=== PATIENT | male | born 1945 | race Caucasian/White ===

== ENCOUNTER → 2017-02-21 | Outpatient (CLI) | payer MEDICARE, OTHER ==
[2017-02-21 14:56] LABS: Blood Urea Nitrogen 14 mg/dL (9-20); Non-African American GFR(MDRD) >60 (>60 ml/min/1.73 sqM)
== END | disposition home or self-care (01) ==
LOC: LABWHC1 13:56
PROVIDERS: ATTEND Psychiatry & Neurology Neurology
DX: G40.909 Epilepsy, unspecified, not intractable, without status epilepticus (principal)
CPT/HCPCS: 36415; 82565; 84520

== ENCOUNTER → 2017-02-28 | Outpatient (CLI) | payer MEDICARE, OTHER ==
--- NOTE | 2017-02-28 10:53 | MR ---
EXAMINATION TYPE: MR brain wo/w con DATE OF EXAM: 02/28/2017 COMPARISON: NONE HISTORY: Brain tumor, twitching L eye TECHNIQUE: Multiplanar, multisequence images of the brain and brainstem is performed without and with IV contras t, utilizing 7.5 mL intravenous Gadavist . FINDINGS: Diffusion weighted images demonstrate no evidence of a recent infarct or other diffusion ab normality. There is no extra-axial fluid collection or significant white matter signal abnormality. The ventricular system and cisternal spaces are normal in size and appearance. The brain volume is age appropriate. Midline structures demonstrate normal morphology. The craniocervical junction appears within normal limits. Post contrast images demonstrate no abnormal enhancement. The dural venous sinuses appear pa tent. Findings nasal septal deviation and changes of chronic sinusitis noted. There is a prominent cisterna magna. Intraorbital structures have a normal appearance. Optic chiasm has a normal appearance. No cerebellop ontine angle mass. Areas of signal alteration within the basal ganglia may represent areas prominent Virchow-Hung space s or tiny lacunar infarctions White matter: There are approximately 30-35 areas of abnormal signal within the white matter predomin antly in the left occipital lobe and parietal lobe. Largest measures approximately 1 cm. No lesions p erpendicular to ventricular system. No callosal lesions. No enhancing lesions. IMPRESSION: 1. No evidence of acute intracranial mass or mass effect. 2. Fairly extensive white matter disease as discussed above predominantly occipital and parietal dist ribution. Findings are nonspecific and in pattern. Remote microvascular ischemia favored. Other etiol ogies including demyelinating process not entirely excluded.
== END | disposition home or self-care (01) ==
LOC: RADMRIMAIN 06:44
PROVIDERS: ATTEND Psychiatry & Neurology Neurology
DX: R90.82 White matter disease, unspecified (principal)
CPT/HCPCS: 70553; A9581

== ENCOUNTER 2021-07-26 08:45 | Day surgery (SDC) | payer MEDICARE, OTHER ==
[2021-07-24 13:20] VITALS: BMI 24.7
[~2021-07-26 08:45] MED LIST: LACTATED RINGERS 1,000 ML IV SCH
[2021-07-26 08:58] VITALS: TEMP 97.8
[2021-07-26 09:14] LABS: Glucose,Whole Blood 75 mg/dL (75-99)
[2021-07-26] MEDS ORDERED: PROPOFOL 10 MG/ML 20 ML VIAL IV ONE (09:19)
[2021-07-26] MEDS ORDERED: LIDOCAINE 1% INJ 10MG/ML (20 ML MDV) ONE (09:19)
--- NOTE | 2021-07-26 09:38 | P.PCN ---
Date of Procedure: 07/26/21 Procedure(s) Performed: BRIEF HISTORY: Patient is a 76-year-old pleasant male scheduled for an elective colonoscopy as a part of the for colorectal neoplasia. Last colonoscopy was 15 years ago. PROCEDURE PERFORMED: Colonoscopy snare polypectomy. PREOPERATIVE DIAGNOSIS: Screening for colon cancer. IV sedation per Anesthesia. PROCEDURE: After informed consent was obtained, the patient, was brought into the endoscopy unit. IV sedation was administered by Anesthesia under continuous monitoring. Digital rectal examination was normal. Initially the Olympus CF-160 flexible video colonoscope was then inserted in the rectum, gradually advanced into the cecum without any difficulty. Careful examination was performed as the scope was gradually being withdrawn. Ileocecal valve and the appendiceal orifice were visualized and appeared normal. Prep was excellent. Mucosa of the cecum, ascending colon, transverse colon, descending colon, sigmoid colon, and rectum appeared normal. The proximal rectum there was a 1 cm polyp removed by snare polypectomy Retroflexion was performed in the rectum and no lesions were seen. The patient tolerated the procedure well. IMPRESSION: 1 cm proximal rectal polyp status post polypectomy Rest of the colon appeared normal RECOMMENDATIONS: Findings of this examination were discussed with the patient as well as his family. He was advised to follow with the biopsy results. If the biopsy results adenoma he can have a repeat colonoscopy in 3 years.
[2021-07-26 10:00] VITALS: PULSE 80; RESP 20
[2021-07-26 10:11] VITALS: BP 123/76
== END 2021-07-26 10:13 | disposition home or self-care (01) ==
LOC: ORWHC2ENDO 08:45
PROVIDERS: ATTEND Internal Medicine Gastroenterology
DX: Z12.11 Encounter for screening for malignant neoplasm of colon (principal); D12.8 Benign neoplasm of rectum; E78.5 Hyperlipidemia, unspecified; N40.0 Benign prostatic hyperplasia without lower urinary tract symptoms; K21.9 Gastro-esophageal reflux disease without esophagitis; Z79.899 Other long term (current) drug therapy
CPT/HCPCS: 88305; 45385; J2001; J2704

== ENCOUNTER 2022-01-26 06:14 | Day surgery (SDC) | payer MEDICARE, OTHER ==
[2022-01-24 10:47] VITALS: BMI 24.3
[2022-01-26 06:38] VITALS: TEMP 97.8
[2022-01-26 06:51] LABS: Glucose,Whole Blood 81 mg/dL (70-110)
[2022-01-26] MEDS ORDERED: PROPOFOL 10 MG/ML 20 ML VIAL IV ONE (07:13)
--- NOTE | 2022-01-26 07:35 | P.PCN ---
Date of Procedure: 01/26/22 Procedure(s) Performed: BRIEF HISTORY: Patient is a 76-year-old pleasant male scheduled for an elective colonoscopy as a part of follow-up of rectal polyp with high-grade dysplasia noted on a routine screening colonoscopy in July of this year. PROCEDURE PERFORMED: Colonoscopy with biopsy. PREOPERATIVE DIAGNOSIS: Follow-up rectal polyp with high-grade dysplasia. IV sedation per Anesthesia. PROCEDURE: After informed consent was obtained, the patient, was brought into the endoscopy unit. IV sedation was administered by Anesthesia under continuous monitoring. Digital rectal examination was normal. Initially the Olympus CF-160 flexible video colonoscope was then inserted in the rectum, gradually advanced into the cecum without any difficulty. Careful examination was performed as the scope was gradually being withdrawn. Ileocecal valve and the appendiceal orifice were visualized and appeared normal. Prep was excellent. Mucosa of the cecum, ascending colon, transverse colon, descending colon, sigmoid colon, and rectum appeared normal. In the distal rectum there was a 2 mm polyp that was removed by cold biopsy. Retroflexion was performed in the rectum and no lesions were seen. The patient tolerated the procedure well. IMPRESSION: 2 mm residual rectal polyp status post cold biopsy Rest of the colon appeared normal RECOMMENDATIONS: Findings of this examination were discussed with the patient well as his family. He was advised to follow with the biopsy results. Recommend repeat colonoscopy in 3 years..
[2022-01-26 07:39] VITALS: RESP 16
[2022-01-26 07:54] VITALS: BP 144/83; PULSE 69
== END 2022-01-26 08:03 | disposition home or self-care (01) ==
LOC: ORWHC2ENDO 06:14
PROVIDERS: ATTEND Internal Medicine Gastroenterology
DX: K62.1 Rectal polyp (principal); K62.89 Other specified diseases of anus and rectum; E78.5 Hyperlipidemia, unspecified; N40.0 Benign prostatic hyperplasia without lower urinary tract symptoms; K21.9 Gastro-esophageal reflux disease without esophagitis; Z79.899 Other long term (current) drug therapy; Z87.891 Personal history of nicotine dependence; Z80.1 Family history of malignant neoplasm of trachea, bronchus and lung; Z80.8 Family history of malignant neoplasm of other organs or systems
CPT/HCPCS: 88305; 45380; J2704

== ENCOUNTER 2022-08-09 17:40 | Emergency (ER) | payer MEDICARE, OTHER ==
[2022-08-09 18:18] VITALS: TEMP 98.3
[2022-08-09] MEDS ORDERED: SODIUM CHLORIDE 0.9% 500 ML 500 ML IV STA (18:40)
[2022-08-09 19:34] LABS: Basophils # (A) 0.1 k/uL (0-0.2); Basophils % (A) 1 %; Eosinophils # (A) 0.1 k/uL (0-0.7); Eosinophils % (A) 2 %; HCT 45.3 % (39.0-53.0); HGB 15.7 gm/dL (13.0-17.5); Lymphocytes # (A) 1.1 k/uL (1.0-4.8); Lymphocytes % (A) 20 %; MCH 33.3 pg (25.0-35.0); MCHC 34.6 g/dL (31.0-37.0); MCV 96.3 fL (80.0-100.0); Mean Platelet Volume 9.7; Monocytes # (A) 0.3 k/uL (0-1.0); Monocytes % (A) 6 %; Neutrophils # (A) 3.8 k/uL (1.3-7.7); Neutrophils % (A) 68 %; Platelet Count 139 k/uL (150-450); RDW 13.5 % (11.5-15.5); WBC 5.6 k/uL (3.8-10.6)
[2022-08-09 19:49] LABS: ALT 17 U/L (4-49); AST 24 U/L (17-59); African American GFR (CKD) >90 (>60 ml/min/1.73 sqM); Albumin 4.3 g/dL (3.5-5.0); Alkaline Phosphatase 59 U/L (38-126); Amylase 54 U/L (30-110); Anion Gap 7 mmol/L; Blood Urea Nitrogen 16 mg/dL (9-20); Calcium 8.7 mg/dL (8.4-10.2); Carbon Dioxide 27 mmol/L (22-30); Chloride 105 mmol/L (98-107); Glucose 85 mg/dL (74-99); Lipase 29 U/L (23-300); Non-African American GFR(CKD) 89 (>60 ml/min/1.73 sqM); Potassium 4.2 mmol/L (3.5-5.1); Sodium 139 mmol/L (137-145); Total Bilirubin 1.2 mg/dL (0.2-1.3); Total Protein 7.1 g/dL (6.3-8.2)
[2022-08-09 20:45] LABS: Amorphous Sediment,Urine Rare /hpf; Appearance,Urine Clear (Clear); Bilirubin,Urine Negative (Negative); Blood,Urine Trace (Negative); Color,Urine Yellow; Glucose,Urine (UA) Negative (Negative); Ketones,Urine 1+ (Negative); Leukocyte Esterase,Urine Negative (Negative); Mucus,Urine Rare /hpf; Nitrite,Urine Negative (Negative); PH, Urine 5.5 (5.0-8.0); Protein,Urine Trace (Negative); RBC,Urine 7 /hpf (0-5); Specific Gravity,Urine 1.021 (1.001-1.035); Squamous Epithelial Cell,Urine 1 /hpf (0-4); Urobilinogen,Urine <2.0 mg/dL (<2.0); WBC,Urine 9 /hpf (0-5)
--- NOTE | 2022-08-09 21:25 | CT ---
EXAMINATION TYPE: CT abdomen pelvis w con CT DLP: 909.2 mGycm, Automated exposure control for dose reduction was used. DATE OF EXAM: 08/09/2022 8:52 PM COMPARISON: None CLINICAL INDICATION:Male, 77 years old with history of LLQ abdominal pain; LLQ abdominal pain TECHNIQUE: Axial CT of the abdomen and pelvis. Sagittal and coronal reformats were created on a [employer] workstation. Contrast used:100 cc mL of Isovue 300 with IV Contrast, Oral contrast used: without Oral Contrast FINDINGS: LOWER CHEST: Peripheral interstitial lung prominence with air cysts. No suspicious nodule. No focal c onsolidation, pneumothorax or pleural effusion. ABDOMEN LIVER: Unremarkable GALLBLADDER AND BILE DUCTS: Unremarkable. PANCREAS: Unremarkable. SPLEEN: Unremarkable. ADRENAL GLANDS: Unremarkable. KIDNEYS AND URETERS: No evidence of hydronephrosis or renal calculus. The ureters are unremarkable. PELVIS BLADDER: Left posterior lateral bladder diverticula. There is hyperemia diverticula bladder wall. REPRODUCTIVE: Prostate is enlarged in size measuring 4.8 cm in transverse dimension. ABDOMEN & PELVIS STOMACH AND BOWEL: No evidence of bowel obstruction. Moderate hiatal hernia is present. The appendix is normal. Scattered colonic diverticula.r PERITONEUM/RETROPERITONEUM: No evidence of pneumoperitoneum or free fluid. VASCULATURE: Mild atherosclerotic calcifications are present throughout the abdominal aorta and its b ranches. No evidence of aortic aneurysm. MUSCULOSKELETAL: L1 vertebral body age-indeterminate compression fracture. There is 5 mm retropulsion and at least 70% height loss centrally. LYMPH NODES: No gross evidence for lymphadenopathy. SOFT TISSUE/ABDOMINAL WALL: Bilateral fat-containing inguinal hernias IMPRESSION: 1. No obvious acute left lower quadrant process. There is colonic diverticulosis without significant fat stranding changes. There is left lower quadrant fat-containing inguinal hernia and left posterio r lateral bladder diverticula with some hyperemic urothelium. No obstructive uropathy or renal calcul us. 2. Prostatomegaly. Correlate serum PSA. 3. Bilateral fat-containing inguinal hernias. 4. Moderate hiatal hernia 5. L1 vertebral body age-indeterminate compression fracture. There is 5 mm retropulsion and at least 70% height loss centrally.
[2022-08-09 22:03] VITALS: BP 146/92; PULSE 68; RESP 18
--- NOTE | 2022-08-09 22:05 | ED ---
General Adult HPI - General Chief complaint: Abdominal Pain Stated complaint: Sent by urgent care/[facility] Abd Pain Time Seen by Provider: 08/09/22 18:31 Source: patient Mode of arrival: ambulatory Limitations: no limitations - History of Present Illness Initial comments: Patient is a 77-year-old male presenting from urgent care for left lower quadrant pain. Patient states that yesterday after he was walking for a long period of time he started to experience pain in the left lower quadrant that was cramping in nature. Patient states that he felt cold and was pushing on his abdomen and that seems to alleviate the pain. Patient has not had a recurrence of the pain since then. He is having no fever or chills. No diarrhea, hematochezia, melena, dysuria, hematuria. No flank pain. No chest pain or difficulty breathing. No nausea or vomiting. - Related Data Home Medications Medication Instructions Recorded Confirmed Omeprazole 20 mg PO DAILY 05/25/21 08/09/22 Pravastatin Sodium [Pravachol] 10 mg PO HS 05/25/21 08/09/22 Tamsulosin HCl [Flomax] 0.4 mg PO HS 05/25/21 08/09/22 Magnesium Oxide [Magnesium] 500 mg PO DAILY PRN 08/09/22 08/09/22 Previous Rx's Medication Instructions Recorded Sulfamethox-Tmp 800-160Mg [Bactrim 1 tab PO Q12HR 7 Days #14 tab 08/09/22 DS 800-160 mg] Allergies Allergy/AdvReac Type Severity Reaction Status Date / Time No Known Allergies Allergy Verified 08/09/22 19:38 Review of Systems ROS Statement: Those systems with pertinent positive or pertinent negative responses have been documented in the HPI. ROS Other: All systems not noted in ROS Statement are negative. Past Medical History Past Medical History: GERD/Reflux, Osteoarthritis (OA), Prostate Disorder Additional Past Medical History / Comment(s): HYPOGLYCEMIA., BPH, History of Any Multi-Drug Resistant Organisms: None Reported Additional Past Surgical History / Comment(s): GUM & ORAL SURGERY, CIRCUMSICION, COLONOSCOPY. Past Anesthesia/Blood Transfusion Reactions: No Reported Reaction Past Psychological History: No Psychological Hx Reported Smoking Status: Former smoker Past Alcohol Use History: None Reported Past Drug Use History: None Reported - Past Family History Mother Family Medical History: No Reported History Father Family Medical History: Cancer General Exam Limitations: no limitations General appearance: alert, in no apparent distress Head exam: Present: atraumatic, normocephalic, normal inspection Eye exam: Present: normal appearance Neck exam: Present: normal inspection, full ROM Respiratory exam: Present: normal lung sounds bilaterally. Absent: respiratory distress, wheezes, rales, rhonchi, stridor Cardiovascular Exam: Present: regular rate, normal rhythm, normal heart sounds. Absent: systolic murmur, diastolic murmur, rubs, gallop, clicks GI/Abdominal exam: Present: soft. Absent: distended, tenderness, guarding, rebound, rigid Neurological exam: Present: alert, oriented X3, CN II-XII intact Psychiatric exam: Present: normal affect, normal mood Skin exam: Present: warm, dry, intact, normal color. Absent: rash Course Vital Signs 08/09/22 08/09/22 18:14 22:03 Temperature 98.3 F Pulse Rate 72 68 Respiratory 20 18 Rate Blood Pressure 128/79 146/92 O2 Sat by Pulse 95 97 Oximetry Medical Decision Making - Medical Decision Making Was pt. sent in by a medical professional or institution (, PA, TRANSPORTATION SECURITY OFFICER, urgent care, hospital, or half-way...) When possible be specific @ -Urgent care Did you speak to anyone other than the patient for history (EMS, parent, family, police, friend...)? What history was obtained from this source @ -No Did you review nursing and triage notes (agree or disagree)? Why? @ -I reviewed the nursing and triage note and disagree, patient states that pain started yesterday and has not recurred since then Were old charts reviewed (outside hosp., previous admission, EMS record, old EKG, old radiological studies, urgent care reports/EKG's, half-way records)? Report findings @ -No old charts were reviewed Differential Diagnosis (chest pain, altered mental status, abdominal pain women, abdominal pain men, vaginal bleeding, weakness, fever, dyspnea, syncope, headache, dizziness, GI bleed, back pain, seizure, CVA, palpatations, mental health, musculoskeletal)? @ -[facility] Differential Abdominal Pain Men: Appendicitis, cholecystitis, diverticulosis, ischemic bowel, pancreatitis, hepatitis, UTI, gastroenteritis, AAA, incarcerated hernia, bowel obstruction, c onstipation, inflammatory bowel, hepatitis, peptic ulcer disease, splenic infarction, perforated viscus, testicular torsion... This is not meant to be an all-inclusive list EKG interpreted by me (3pts min.). @ -As above X-rays interpreted by me (1pt min.). @ -None done CT interpreted by me (1pt min.). @ -CT shows no obvious acute left lower quadrant process. There is diverticulosis without significant fat stranding changes. There is a left lower quadrant fat containing inguinal hernia and left posterior lateral bladder diverticula with some hyperemic urothelium. No obstructive uropathy or renal calculus. Prostatomegaly. Bilateral fat containing inguinal hernias. A moderate hiatal hernia. L1 vertebral body age-indeterminate compression fracture. U/S interpreted by me (1pt. min.). @ -None done What testing was considered but not performed or refused? (CT, X-rays, U/S, labs)? Why? @ -None What meds were considered but not given or refused? Why? @ -None Did you discuss the management of the patient with other professionals (professionals i.e. , PA, TRANSPORTATION SECURITY OFFICER, lab, RT, psych nurse, dialysis social worker, standpipe tender, teacher, marine safety officer, manager rn case)? Give summary @ -No Was smoking cessation discussed for >3mins.? @ -No Was critical care preformed (if so, how long)? @ -No Were there social determinants of health that impacted care today? How? (Homelessness, low income, unemployed, alcoholism, drug addiction, transportation, low edu. Level, literacy, decrease access to med. care, residential, rehab)? @ -No Was there de-escalation of care discussed even if they declined (Discuss DNR or withdrawal of care, Hospice)? DNR status @ -No What co-morbidities impacted this encounter? (DM, HTN, Smoking, COPD, CAD, Cancer, CVA, ARF, Chemo, Hep., AIDS, mental health diagnosis, sleep apnea, morbid obesity)? @ -None Was patient admitted / discharged? Hospital course, mention meds given and route, prescriptions, significant lab abnormalities, going to OR and other pertinent info. @ -Patient is a 77-year-old male presenting with chief complaint of left lower quadrant pain that occurred yesterday and has not recurred since. He was sent here by urgent care. On physical examination abdomen is soft, nontender, nondistended. Lab work shows no leukocytosis or anemia. CMP is unremarkable. Urine shows evidence of possible UTI, we'll treat with Bactrim. CT shows no acute process of the left lower quadrant. Given patient's description may have been hernia. Patient will be provided with a general surgery referral. Follow- up with PCP. Report back to ER with any new or worsening symptoms. Discussed return parameters and answered all questions. Patient conveyed verbal understa nding and agreed to the plan. I discussed this case in detail with my attending Dr. Fan Undiagnosed new problem with uncertain prognosis? @ -No Drug Therapy requiring intensive monitoring for toxicity (Heparin, Nitro, Insulin, Cardizem)? @ -No Were any procedures done? @ -No Diagnosis/symptom? @ -UTI Acute, or Chronic, or Acute on Chronic? @ -Acute Uncomplicated (without systemic symptoms) or Complicated (systemic symptoms)? @ -Uncomplicated Side effects of treatment? @ -No Exacerbation, Progression, or Severe Exacerbation? @ -No Poses a threat to life or bodily function? How? (Chest pain, USA, AR, pneumonia, PE, COPD, DKA, ARF, appy, cholecystitis, CVA, Diverticulitis, Homicidal, Suicidal, threat to staff... and all critical care pts) @ -No - Lab Data Result diagrams: 08/09/22 19:16 08/09/22 19:16 Lab Results 08/09/22 08/09/22 08/09/22 Range/Units 19:16 19:16 19:16 WBC 5.6 (3.8-10.6) k/uL RBC 4.70 (4.30-5.90) m/uL Hgb 15.7 (13.0-17.5) gm/dL Hct 45.3 (39.0-53.0) % MCV 96.3 (80.0-100.0) fL MCH 33.3 (25.0-35.0) pg MCHC 34.6 (31.0-37.0) g/dL RDW 13.5 (11.5-15.5) % Plt Count 139 L (150-450) k/uL MPV 9.7 Neutrophils % 68 % Lymphocytes % 20 % Monocytes % 6 % Eosinophils % 2 % Basophils % 1 % Neutrophils # 3.8 (1.3-7.7) k/uL Lymphocytes # 1.1 (1.0-4.8) k/uL Monocytes # 0.3 (0-1.0) k/uL Eosinophils # 0.1 (0-0.7) k/uL Basophils # 0.1 (0-0.2) k/uL Sodium 139 (137-145) mmol/L Potassium 4.2 (3.5-5.1) mmol/L Chloride 105 (98-107) mmol/L Carbon Dioxide 27 (22-30) mmol/L Anion Gap 7 mmol/L BUN 16 (9-20) mg/dL Creatinine 0.78 (0.66-1.25) mg/dL Est GFR (CKD-EPI)AfAm >90 (>60 ml/min/1.73 sqM) Est GFR (CKD-EPI)NonAf 89 (>60 ml/min/1.73 sqM) Glucose 85 (74-99) mg/dL Plasma Lactic Acid Joel 0.9 (0.7-2.0) mmol/L Calcium 8.7 (8.4-10.2) mg/dL Total Bilirubin 1.2 (0.2-1.3) mg/dL AST 24 (17-59) U/L ALT 17 (4-49) U/L Alkaline Phosphatase 59 (38-126) U/L Total Protein 7.1 (6.3-8.2) g/dL Albumin 4.3 (3.5-5.0) g/dL Amylase 54 (30-110) U/L Lipase 29 (23-300) U/L Urine Color Urine Appearance (Clear) Urine pH (5.0-8.0) Ur Specific [place] (1.001-1.035) Urine Protein (Negative) Urine Glucose (UA) (Negative) Urine Ketones (Negative) Urine Blood (Negative) Urine Nitrite (Negative) Urine Bilirubin (Negative) Urine Urobilinogen (<2.0) mg/dL Ur Leukocyte Esterase (Negative) Urine RBC (0-5) /hpf Urine WBC (0-5) /hpf Ur Squamous Epith Cells (0-4) /hpf Amorphous Sediment (None) /hpf Urine Mucus (None) /hpf 08/09/22 Range/Units 20:25 WBC (3.8-10.6) k/uL RBC (4.30-5.90) m/uL Hgb (13.0-17.5) gm/dL Hct (39.0-53.0) % MCV (80.0-100.0) fL MCH (25.0-35.0) pg MCHC (31.0-37.0) g/dL RDW (11.5-15.5) % Plt Count (150-450) k/uL MPV Neutrophils % % Lymphocytes % % Monocytes % % Eosinophils % % Basophils % % Neutrophils # (1.3-7.7) k/uL Lymphocytes # (1.0-4.8) k/uL Monocytes # (0-1.0) k/uL Eosinophils # (0-0.7) k/uL Basophils # (0-0.2) k/uL Sodium (137-145) mmol/L Potassium (3.5-5.1) mmol/L Chloride (98-107) mmol/L Carbon Dioxide (22-30) mmol/L Anion Gap mmol/L BUN (9-20) mg/dL Creatinine (0.66-1.25) mg/dL Est GFR (CKD-EPI)AfAm (>60 ml/min/1.73 sqM) Est GFR (CKD-EPI)NonAf (>60 ml/min/1.73 sqM) Glucose (74-99) mg/dL Plasma Lactic Acid Joel (0.7-2.0) mmol/L Calcium (8.4-10.2) mg/dL Total Bilirubin (0.2-1.3) mg/dL AST (17-59) U/L ALT (4-49) U/L Alkaline Phosphatase (38-126) U/L Total Protein (6.3-8.2) g/dL Albumin (3.5-5.0) g/dL Amylase (30-110) U/L Lipase (23-300) U/L Urine Color Yellow Urine Appearance Clear (Clear) Urine pH 5.5 (5.0-8.0) Ur Specific [place] 1.021 (1.001-1.035) Urine Protein Trace H (Negative) Urine Glucose (UA) Negative (Negative) Urine Ketones 1+ H (Negative) Urine Blood Trace H (Negative) Urine Nitrite Negative (Negative) Urine Bilirubin Negative (Negative) Urine Urobilinogen <2.0 (<2.0) mg/dL Ur Leukocyte Esterase Negative (Negative) Urine RBC 7 H (0-5) /hpf Urine WBC 9 H (0-5) /hpf Ur Squamous Epith Cells 1 (0-4) /hpf Amorphous Sediment Rare H (None) /hpf Urine Mucus Rare H (None) /hpf Disposition Clinical Impression: UTI (urinary tract infection) Disposition: HOME SELF-CARE Condition: Good Instructions (If sedation given, give patient instructions): Urinary Tract Infection in Men (ED), Inguinal Hernia (ED) Additional Instructions: Follow-up with PCP and surgeon. Report back to ER with any new or worsening symptoms. Take medication as prescribed. Prescriptions: Sulfamethox-Tmp 800-160Mg [Bactrim DS 800-160 mg] 1 tab PO Q12HR 7 Days #14 tab Is patient prescribed a controlled substance at d/c from ED?: No Referrals: [facility],Clinic [Primary Care Provider] - 1-2 days Ashish Gallegos MD [STAFF PHYSICIAN] - 1-2 days Time of Disposition: 22:04
== END 2022-08-09 22:28 | disposition home or self-care (01) ==
LOC: EC 17:40
DX: N39.0 Urinary tract infection, site not specified (principal); K21.9 Gastro-esophageal reflux disease without esophagitis; M19.90 Unspecified osteoarthritis, unspecified site; Z87.891 Personal history of nicotine dependence; Z79.899 Other long term (current) drug therapy
CPT/HCPCS: 36415; 80053; 82150; 83605; 83690; 85025; 81001; 74177; 99284; 96360; Q9967

== ENCOUNTER → 2023-04-22 | Outpatient (CLI) | payer OTHER ==
[2023-04-22 20:53] LABS: HCT 48.8 % (39.6-50.0); HGB 16.2 g/dL (13.0-17.0); MCH 31.9 pg (27.0-32.0); MCHC 33.2 g/dL (32.0-37.0); MCV 96.1 FL (80.0-97.0); Mean Platelet Volume 11.6 FL (9.5-12.2); NRBC Per 100 WBC 0 X 10*3/uL (0.00-0.01); Platelet Count 171 X 10*3/uL (140-440); RBC 5.08 X 10*6/uL (4.40-5.60); RDW 13.1 % (11.5-14.5)
[2023-04-22 21:10] LABS: Blood Urea Nitrogen 21.8 mg/dL (9.0-27.0); Carbon Dioxide 27.2 mmol/L (21.6-31.8); Chloride 101 mmol/L (96-109); Potassium 5.2 mmol/L (3.5-5.5); Sodium 137 mmol/L (135-145)
== END | disposition home or self-care (01) ==
LOC: LABWHC1 13:21
PROVIDERS: ATTEND Internal Medicine
DX: Z01.812 Encounter for preprocedural laboratory examination (principal); I45.10 Unspecified right bundle-branch block; R06.09 Other forms of dyspnea
CPT/HCPCS: 36415; 80051; 82565; 84520; 85027

== ENCOUNTER 2023-04-29 10:02 | Day surgery (SDC) | payer OTHER ==
[~2023-04-29 10:02] MED LIST changes: +ALPRAZolam 0.25 MG TAB PO PRN; +ALPRAZolam 0.5 MG TAB PO PRN; +ASPIRIN 325 MG TAB PO STA; -LACTATED RINGERS 1,000 ML IV SCH; +NITROGLYCERIN SL TABS 0.4 MG TAB SUBLINGUAL PRN; +SODIUM CHLORIDE 0.9% 1,000 ML in EMPTY BAG 1 BAG IV SCH
[2023-04-29] MEDS ORDERED: SODIUM CHLORIDE 0.9% 1,000 ML IV ONE (10:09)
[2023-04-29] MEDS ORDERED: VERAPAMIL 2.5 MG/ML 2 ML AMP ONE (10:39)
[2023-04-29 10:50] VITALS: RESP 16; TEMP 97.6
[2023-04-29] MEDS ORDERED: HEPARIN SODIUM 1,000 UN/ML (10ML VL) ONE (11:11)
[2023-04-29] MEDS ORDERED: fentaNYL (PF) 50 MCG/ML 2 ML AMP ONE (11:11)
[2023-04-29] MEDS ORDERED: fentaNYL (PF) 50 MCG/1 ML VIAL IVP ONE (11:18)
[2023-04-29] MEDS ORDERED: MIDAZOLAM 2 MG/2 ML VIAL IVP ONE (11:18)
[2023-04-29] MEDS ORDERED: LIDOCAINE 1% INJ 10MG/ML (20 ML MDV) SQ ONE (11:19)
[2023-04-29] MEDS ORDERED: VERAPAMIL SYRINGE (5 MG/10 ML) INTRAARTER ONE (11:22)
[2023-04-29] MEDS ORDERED: HEPARIN SODIUM 1,000 UN/ML (10ML VL) IV ONE (11:23)
[2023-04-29] MEDS ORDERED: CLOPIDOGREL 75 MG TAB PO ONE (11:35)
[2023-04-29] MEDS: NITROGLYCERIN 1000MCG/10ML SYRINGE INTRACORON ONE ×2 (11:37→11:51)
[2023-04-29] MEDS ORDERED: CLOPIDOGREL 75 MG TAB ONE (11:40)
[2023-04-29] MEDS ORDERED: IOPAMIDOL-370 100ML BTL INJ ONE (11:51)
[2023-04-29] MEDS ORDERED: IOPAMIDOL-370 100ML BTL INTRATHECA ONE (11:54)
--- NOTE | 2023-04-29 12:59 | P.PRCINT ---
Percutaneous Coronary Int. - Percutaneous Coronary Intervention Percutaneous Coronary Intervention: PROCEDURES PERFORMED: Left heart catheterization, bilateral coronary angiography, ultrasound guided arterial access, iFR circumflex and LAD, PCI mid LAD with a 2.25 x 23 mm Xience GURDEEP, post dilated with a 2.5NC balloon INDICATION: Abnormal stress test CONSENT:I have discussed the risks, benefits and alternative therapies for the above-mentioned procedure and for both sedation/analgesia as well as necessary blood product administration, if indicated, as they pertain to this patient. The patient has indicated understanding and acceptance of the risks and procedures discussed. PROCEDURE: After the risks, benefits and alternatives of the above mentioned procedure explained in detail with the patient, informed consent was obtained. Patient was taken to the catheterization lab and prepped and draped in usual fashion. Ultrasound guidance was used to assess for arterial access. 1% lidocaine was used to anesthetize the right radial artery. A 6-Malagasy sheath was placed in the right radial artery using modified Seldinger technique and ultrasound guidance. Left coronary angiography was performed with a 5-Malagasy JL 3.5 catheter and right coronary angiography was performed with a 5-Malagasy AR2 catheter in various views. A 5-Malagasy AR2 catheter was inserted into the left ventricle and pressure measurements were obtained. The decision was made to perform iFR of the LAD and circumflex. Heparin was given. A 6-Malagasy CLS 3.5 guide catheter was used to engage the left main. A 0.014 pressure wire was advanced in the left main and normalized. It was then advanced 1 cm distal to the circumflex lesion and was noted to be normal at 1.01 with no gradient with pullback. The pressure wire was advanced into the LAD and normalized again. The wire was then advanced 1 cm distal to the mid LAD lesion and noted to be an abnormal 0.89 with the majority of gradient at the mid LAD lesion. Therefore the decision was made to perform PCI of LAD. Predilation was performed with a 2.0 x 12 mm balloon. Next a 2.25 x 23 mm Xience GURDEEP was placed in the mid LAD. The proximal portion of the stent was postdilated with a 2.5 noncompliant balloon. There was more diffuse mild disease at the distal edge of the stent however diffuse disease throughout the entire artery and therefore this was felt best treated medically. Pre-intervention there was 75% stenosis and LARRY-3 flow and postintervention there was less than 10% stenosis with LARRY 3 flow. The right radial sheath was removed and a TR band was placed with hemostasis achieved. The patient tolerated the procedure well. Patient was transported back to the post catheterization holding area in stable condition. Conscious Sedation: Patient was monitored under the direct supervision of myself for conscious sedation using Versed and fentanyl for a total duration of 37 minutes HEMODYNAMICS: Aorta: 105/72 LV: 101/5, LVEDP 12 SELECTIVE CORONARY ARTERIOGRAPHY: LEFT MAIN: The left main is a large caliber vessel which bifurcates into the LAD and circumflex. There is no significant stenosis. LEFT ANTERIOR DESCENDING CORONARY ARTERY: LAD is a large caliber vessel which wraps around to the apex. There is diffuse mild to moderate disease including a mid LAD 75% followed by a 70% stenosis. Diagonal 1 is small caliber and has a proximal 70% stenosis. LEFT CIRCUMFLEX CORONARY ARTERY: Left circumflex is a moderate caliber vessel an ostial 50-60% circumflex stenosis and otherwise mild luminal irregularities. RIGHT CORONARY ARTERY: The right coronary artery is a large caliber vessel which gives off a PDA and PLV branch and is the dominant vessel. There are mild luminal irregularities of the RCA. FINAL IMPRESSION: 1. CAD as described above including mid LAD tandem 75%, 70% stenoses, diagonal one small caliber 70% stenosis, ostial circumflex 50-60% stenosis 2. Normal left sided filling pressures 3. iFR LAD abnormal at 0.8, iFR normal of the circumflex at 1.01 4. S/p PCI mid LAD with a 2.25 x 23 mm Xience GURDEEP, post dilated with a 2.5NC balloon PLAN: 1. Aggressive risk factor modification per most recent ACC/AHA guidelines. 2. Continue dual antiplatelets with aspirin and Plavix for 6 months.
[2023-04-29] MEDS ORDERED: ZOLPIDEM 5 MG TAB PO PRN ×2 (13:00→14:36)
[2023-04-29] MEDS ORDERED: MAG HYDROX/AL HYDROX/SIMETH 30 ML CUP PO PRN ×2 (13:00→14:36)
[2023-04-29] MEDS ORDERED: RX INFO: IV CONTRAST WAS GIVEN 1 EACH MISC MISCELLANE PRN (13:00)
[2023-04-29] MEDS ORDERED: SODIUM CHLORIDE 0.9% 1,000 ML in EMPTY BAG 1 BAG IV SCH ×2 (13:00→14:36)
[2023-04-29] MEDS ORDERED: ATROPINE SULFATE 0.1 MG/ML 10ML SYRINGE IV PRN (14:36)
[2023-04-29] MEDS ORDERED: NITROGLYCERIN SL TABS 0.4 MG TAB SUBLINGUAL PRN (14:36)
[2023-04-29 16:23] VITALS: BP 145/78; PULSE 76
[2023-04-29] MEDS ORDERED: ATORVASTATIN 40 MG TAB PO SCH (21:00)
[2023-04-30] MEDS ORDERED: CLOPIDOGREL 75 MG TAB PO SCH ×2 (09:00)
== END 2023-04-29 16:05 | disposition home or self-care (01) ==
LOC: CATHCVL 10:02
PROVIDERS: ATTEND Internal Medicine
DX: I25.10 Atherosclerotic heart disease of native coronary artery without angina pectoris (principal); E78.5 Hyperlipidemia, unspecified; Z82.49 Family history of ischemic heart disease and other diseases of the circulatory system; Z87.891 Personal history of nicotine dependence; Z79.899 Other long term (current) drug therapy
CPT/HCPCS: 93458; 93799; 76937; C1769 ×3; C9600; C1887; C1894; C1725 ×2; C1874; J2250; J2001; J1644; Q9967; J3010; J2305

== ENCOUNTER → 2023-07-02 | Outpatient (CLI) | payer OTHER, MEDICARE ==
[2023-07-03 03:01] LABS: ALT 22 U/L (10-49); AST 22 U/L (14-35); Chol/HDL Ratio 2.12 Ratio; LDL Cholesterol,Calculated 51.2 mg/dL (0.0-131.0)
== END | disposition home or self-care (01) ==
LOC: LABWHC1 15:35
PROVIDERS: ATTEND Internal Medicine
DX: E78.2 Mixed hyperlipidemia (principal)
CPT/HCPCS: 36415; 80061; 84450; 84460

== ENCOUNTER 2024-03-26 11:56 | Day surgery (SDC) | payer MEDICARE, OTHER ==
[2024-03-25 08:59] VITALS: BMI 24.7
[~2024-03-26 11:56] MED LIST changes: -ALPRAZolam 0.25 MG TAB PO PRN; -ALPRAZolam 0.5 MG TAB PO PRN; -ASPIRIN 325 MG TAB PO STA; +HYDROmorphone 0.5 MG/0.5 ML SYRINGE IVP PRN; -NITROGLYCERIN SL TABS 0.4 MG TAB SUBLINGUAL PRN; -SODIUM CHLORIDE 0.9% 1,000 ML in EMPTY BAG 1 BAG IV SCH
[2024-03-26] MEDS: IV FLUID CONTINUATION 1,000 ML IV ONE ×2 (12:40)
--- NOTE | 2024-03-26 13:02 | P.GSHP ---
History of Present Illness H&P Date: 03/26/24 CHIEF COMPLAINT: Inguinal hernia, bilateral HISTORY OF PRESENT ILLNESS: The patient is a 79-year-old male who presents with a history of swelling and pain along the groins. He's noted increased swelling including pain of the area. Now he presents for repair of his inguinal hernia. PAST MEDICAL HISTORY: Please see list. PAST SURGICAL HISTORY: Please see list. MEDICATIONS: Please see list. ALLERGIES: Please see list. SOCIAL HISTORY: No illicit drug use FAMILY HISTORY: No reports of Crohn disease or ulcerative colitis. REVIEW OF ORGAN SYSTEMS: CONSTITUTIONAL: No reports of fevers or chills. No reports of weight loss despite prior attempts. GI: Denies any blood in stools or constipation. PHYSICAL EXAM: VITAL SIGNS: Stable GENERAL: Well-developed pleasant male in no acute distress. HEENT: No scleral icterus. Extraocular movements grossly intact. Moist buccal mucosa. NECK: Supple without lymphadenopathy. CHEST: Unlabored respirations. Equal bilateral excursions. CARDIOVASCULAR: Regular rate and rhythm. Distal 2+ pulses. ABDOMEN: Soft, nondistended. No peritoneal signs. Palpable defect of the groin MUSCULOSKELETAL: No clubbing, cyanosis, or edema. ASSESSMENT: 1. Inguinal hernia, bilateral PLAN: 1. Recommend proceeding with a robotic inguinal repair with mesh with bilateral approach. 2. Benefits and risks of surgical intervention was discussed including possibility of open technique. 3. DVT prophylaxis. 4. Antibiotic prophylaxis. 5. Non narcotic pain management including abdominal wall block described 6. Blood sugar glucose described. 7. Weight loss management described. 8. He is elevated risk for complication Past Medical History Past Medical History: GERD/Reflux, Osteoarthritis (OA), Prostate Disorder Additional Past Medical History / Comment(s): jocelin inguinal hernias,seasonal allergies, HYPOGLYCEMIA., BPH History of Any Multi-Drug Resistant Organisms: None Reported Past Surgical History: Heart Catheterization With Stent Additional Past Surgical History / Comment(s): GUM & ORAL SURGERY, CIRCUMSICION, COLONOSCOPY. Past Anesthesia/Blood Transfusion Reactions: No Reported Reaction Additional Past Anesthesia/Blood Transfusion Reaction / Comment(s): no hx blood transfusion Date of Last Stent Placement:: 2022 Smoking Status: Former smoker - Past Family History Mother Family Medical History: No Reported History Father Family Medical History: Cancer Additional Family Medical History / Comment(s): lung, pancreatic cancer Brother(s) Family Medical History: Coronary Artery Disease (CAD) Additional Family Medical History / Comment(s): CABG-in age 70s Medications and Allergies Home Medications Medication Instructions Recorded Confirmed Type Omeprazole 20 mg PO DAILY PRN 05/25/21 03/26/24 History Tamsulosin HCl [Flomax] 0.4 mg PO HS 05/25/21 03/26/24 History Magnesium Oxide [Magnesium] 250 mg PO DAILY PRN 08/09/22 03/26/24 History Aspirin [Adult Low Dose Aspirin EC] 81 mg PO HS 04/24/23 03/26/24 History Metoprolol Succinate (ER) [Toprol 12.5 mg PO HS 04/24/23 03/26/24 History XL] Atorvastatin [Lipitor] 40 mg PO HS #90 tab 04/29/23 03/26/24 Rx bisacodyL [Dulcolax] 5 mg PO Q2D PRN 03/25/24 03/26/24 History Allergies Allergy/AdvReac Type Severity Reaction Status Date / Time No Known Allergies Allergy Verified 03/26/24 12:40 Surgical - Exam Vital Signs Temp Pulse Resp BP Pulse Ox 97.8 F 84 16 150/94 96 03/26/24 12:48 03/26/24 12:48 03/26/24 12:48 03/26/24 12:48 03/26/24 12:48
[2024-03-26 13:07] LABS: HCT 45.6 % (39.0-53.0); HGB 15.2 gm/dL (13.0-17.5); MCH 31.8 pg (25.0-35.0); MCHC 33.3 g/dL (31.0-37.0); MCV 95.5 fL (80.0-100.0); Mean Platelet Volume 8.7; Platelet Count 151 k/uL (150-450); RBC 4.78 m/uL (4.30-5.90); RDW 12.9 % (11.5-15.5); WBC 5.7 k/uL (3.8-10.6)
[2024-03-26 13:18] LABS: African American GFR (CKD) >90 (>60 ml/min/1.73 sqM); Anion Gap 5 mmol/L; Blood Urea Nitrogen 12 mg/dL (9-20); Calcium 8.8 mg/dL (8.4-10.2); Carbon Dioxide 27 mmol/L (22-30); Chloride 106 mmol/L (98-107); Glucose 90 mg/dL (74-99); Non-African American GFR(CKD) 87 (>60 ml/min/1.73 sqM); Sodium 138 mmol/L (137-145)
[2024-03-26] MEDS: LACTATED RINGERS 1,000 ML IV SCH (13:21)
[2024-03-26] MEDS: ACETAMINOPHEN TAB 500 MG TAB PO PRN (13:22)
[2024-03-26] MEDS: DEXAMETHASONE SOD PHOSPHATE 4 MG/ML 1 ML VIAL IVP STA (13:22)
[2024-03-26] MEDS: ONDANSETRON 4 MG/2 ML VIAL IVP PRN (13:22)
[2024-03-26] MEDS: MELOXICAM 7.5 MG TAB PO PRN (13:22)
[2024-03-26] MEDS: MIDAZOLAM 2 MG/2 ML VIAL IV ONE (14:37)
[2024-03-26] MEDS: HEPARIN SODIUM,PORCINE 5,000 UNIT/ML 1 ML VIAL SQ PRN (14:52)
[2024-03-26] MEDS ORDERED: SUCCINYLCHOLINE CHLORIDE 200 MG/10 ML VIAL IV ONE (15:29)
[2024-03-26] MEDS ORDERED: GLYCOPYRROLATE 0.2 MG/ML 2 ML VIAL ONE (15:29)
[2024-03-26] MEDS ORDERED: ROCURONIUM 10 MG/ML (5 ML VIAL) IV ONE (15:29)
[2024-03-26] MEDS ORDERED: SODIUM CHLORIDE 0.9% (PF) 10 ML VIAL ONE (15:29)
[2024-03-26] MEDS ORDERED: LIDOCAINE 1% INJ 10MG/ML (20 ML MDV) ONE (15:29)
[2024-03-26] MEDS ORDERED: HYDROmorphone (PF) 1 MG/ML ONE (15:29)
[2024-03-26] MEDS ORDERED: NEOSTIGMINE 1 MG/ML 10 ML VIAL ONE (15:29)
[2024-03-26] MEDS ORDERED: PROPOFOL 10 MG/ML 20 ML VIAL IV ONE (15:29)
[2024-03-26] MEDS ORDERED: DEXAMETHASONE SOD PHOSPHATE 4 MG/ML 1 ML VIAL ONE (15:29)
[2024-03-26] MEDS ORDERED: ROPIVACAINE 5 MG/ML 30 ML VIAL ONE (15:29)
[2024-03-26] MEDS ORDERED: fentaNYL (PF) 50 MCG/ML 2 ML AMP ONE (15:29)
[2024-03-26] MEDS ORDERED: PHENYLEPHRINE 10 MG/ML VIAL ONE (15:29)
[2024-03-26] MEDS: LIDOCAINE 1%-EPI 1:100,000 20 ML VIAL SQ ONE (16:01)
[2024-03-26] MEDS: LACTATED RINGERS 1,000 ML IV ONE (17:02)
[2024-03-26] MEDS ORDERED: ONDANSETRON 4 MG/2 ML VIAL IVP PRN (18:49)
[2024-03-26] MEDS ORDERED: PANTOPRAZOLE 40 MG TABLET PO PRN (18:49)
[2024-03-26] MEDS ORDERED: bisacodyL 5 MG TABLET.DR PO PRN (18:49)
[2024-03-26] MEDS ORDERED: NALOXONE 0.4 MG/ML 1 ML VIAL IV PRN (18:49)
--- NOTE | 2024-03-26 19:54 | P.ANPRN ---
Procedure Note - Anesthesia - Nerve Block Performed Bilateral Erector Spinae Single Time Out Performed: Yes Date of Procedure: 03/26/24 Procedure Start Time: 14:44 Procedure Stop Time: 14:48 Location of Patient: PreOp Indication: Acute Post-Operative Pain, Requested by Surgeon Sedation Type: Sedate with meaningful contact maintained Preparation: Sterile Prep Position: Prone Needle Types: Pajunk Needle Gauge: 21 Ultrasound used to visualize needle placement: Yes Ultrasound used to observe medication spread: Yes Blood Aspirated: No Pain Paresthesia on Injection Noted: No Resistance on Injection: Normal Image Stored and Saved: Yes Events: Uneventful and Well Tolerated (Ropivacaine 0.5% 15 cc plus normal saline 10 cc plus dexamethasone 4 mg given bilaterally at L1)
[2024-03-26] MEDS: SODIUM CHLORIDE 0.9% 1,000 ML IV SCH (20:01)
[2024-03-26] MEDS: TAMSULOSIN 0.4 MG CAP.ER.24H PO STA (20:03)
[2024-03-26] MEDS: ASPIRIN 81 MG PO SCH (21:25)
[2024-03-26] MEDS: METOPROLOL SUCCINATE (ER) 25 MG TAB.ER.24H PO SCH (21:25)
[2024-03-26] MEDS: HYDROmorphone 2 MG/ML 1 ML SYRINGE IVP PRN (21:26)
[2024-03-26] MEDS: ATORVASTATIN 40 MG TAB PO SCH (21:26)
[2024-03-26] MEDS: TAMSULOSIN 0.4 MG CAP.ER.24H PO SCH (21:26)
[2024-03-26] MEDS: ACETAMINOPHEN IV (For NPO) 1,000 MG in EMPTY BAG 1 BAG IVPB SCH (23:56)
--- NOTE | 2024-03-27 05:31 | P.OP ---
Date of Procedure: 03/26/24 Description of Procedure: SURGEON: VINAYAK PATRICIO MD PREOPERATIVE DIAGNOSES: 1. Initial bilateral inguinal hernia 2. Coronary artery disease status post cardiac catheterization with stent placement 3. Hypertensive heart disease 4. Coronary artery disease 5. Obstructive uropathy due to benign prostatic hypertrophy 6. Chronic obstructive pulmonary disease 7. Gastroesophageal reflux disease POSTOPERATIVE DIAGNOSES: 1. Initial bilateral inguinal hernia with bowel incarceration, sigmoid colon 2. Coronary artery disease status post cardiac catheterization with stent placement 3. Hypertensive heart disease 4. Coronary artery disease 5. Obstructive uropathy due to benign prostatic hypertrophy 6. Chronic obstructive pulmonary disease 7. Gastroesophageal reflux disease 8. Pelvic adhesions 9. Right obturator hernia 10. Right inguinal lipoma, subfascial OPERATION: 1. Robotic-assisted da Ramesh Xi laparoscopic repair of initial indirect and direct right inguinal hernia with mesh, 10 x [address] 2. Robotic-assisted da Ramesh Xi laparoscopic repair of initial indirect left inguinal hernia with mesh, 10 x [address] 3. Resection of incarcerated right subfascial inguinal lipoma, 6 x 3 cm 4. Robotic-assisted da Ramesh Xi laparoscopic left pelvic reconstruction ANESTHESIA: General with local anesthetic, regional block ESTIMATED BLOOD LOSS: 20 mL. SPECIMENS: 1. Left inguinal lipoma and hernia sac 2. Right inguinal hernia lipoma and sac 2. Right obturator hernia COMPLICATIONS: None. FINDINGS: 1. Indirect left inguinal hernia defect, 3 cm by 7 cm 2. Direct and indirect right inguinal hernia defect, including right obturator hernia 3. Multiport, 4 trocar technique performed. INDICATIONS: The patient is a 79-year-old gentleman who presents with symptomatic bilateral inguinal hernia including intermittent bowel obstruction. Now presents for definitive surgical intervention. Laparoscopic versus open and robotic approaches were discussed. Benefits and risks including bleeding, infection, injury to the vas deferens as well as sterility and chronic groin pain were reviewed. Placement of mesh was also described. Informed consent was obtained. DESCRIPTION: In the preoperative area, the patient was marked with indelible marker along the inguinal hernia. The patient was brought to the operating room and initially laid in supine position. The abdomen had been prepped and draped in standard sterile fashion. Ioban draping was also placed. Prior to incision, a timeout protocol was confirmed with surgical team regarding patient's name including procedures to be performed and location along the bilateral groin. Initial positioning for the robotic assisted ports were selected whereby 15 cm superior to the target anatomy, 0 degree 5 mm laparoscopic trocar entry was performed at the left upper quadrant. The abdomen was insufflated to 15 mmHg which he had tolerated well. Diagnostic laparoscopy demonstrated no injury to bowel, viscera or mesentery. Along the left pelvis, sigmoid colon adherent to the left pelvis. Pantaloon hernia, indirect and direct found on right side including obturator hernia. Next, along the epigastrium, 8 mm robot trocar was placed. An 8-mm robotic trocar was placed under direct visualization at the right upper quadrant. An 8 mm port was placed at the left upper quadrant. All trocars were positioned between 10-cm apart from each other. A robotic trocar 12 mm placed along the right upper abdominal wall, lateral. The [employer] XI robot was primed, draped, prepared for docking along upper abdomen of the patient. The patient was positioned 21 steep Trendelenburg position I then went to the [employer] Xi console. The assistant program manager was at bedside for exchange of the robot arms and equipment. The right obturator hernia and indirect inguinal hernia sac was evaginated whereby the peritoneum was scored using Endo scissors with cautery. Large lipoma identified of the right groin was reduced and resected 6 cm x 3 cm subfascial lipoma involving the obturator hernia. Once completely reduced into the abdominal cavity, the peritoneal sac of the hernia was stripped. The sac was resected and then passed off for further pathological analysis. The size of the hernia defect was 3 cm with intraoperative films obtained of the right obturator hernia. The measured fascial defect of right hernias were 3 cm x 4 cm width. Using a nonabsorbable 2-0 VLOC, the ligament of the obturator hernia was reapproximated similarly of the right indirect inguinal hernia. The peritoneal defect of the left inguinal hernia sites was closed using a pursestring suture separately. The defect was found to be completely closed. As an onlay, an 10 x [address] mesh by Snyppit was cut in half and entered into the abdominal cavity via the 12 mm trocar. The mesh was tacked to the pelvis using absorbable 2-0 VLOC sutures. Next, moderate adhesions along the left pelvis was found with the sigmoid colon adherent to the left inguinal canal. Careful dissection was performed demonstrating the sidewall of the sigmoid colon involved in the left inguinal hernia creating a slight inguinal hernia. With careful dissection of the sigmoid colon was dissected free from the abdominal wall, left pelvis and inguinal hernia using a combination of blood technique including sharp dissection using robotic scissors with cautery. No enterotomy or colotomy's were performed. The resultant defect was 7 x 4 cm with complete weakness of the left pelvic wall and posterior inguinal wing requiring reconstruction. The peritoneum was reapproximated along the pelvis using nonabsorbable 2-0 V-LOC as the sigmoid colon was dissected along the posterior floor to allow for closure of the defect. Using a nonabsorbable 2-0 VLOC, the shelving portion of the inguinal ligament was reapproximated to the conjoined tendon. The peritoneal defect of the left inguinal hernia site was closed using a running suture. The defect was found to be completely closed with complete reduction of the left indirect inguinal hernia was confirmed. As an onlay, an 10 x [address] mesh by Snyppit was entered into the abdominal cavity via the 12 mm trocar. The mesh was tacked to the pelvis using absorbable 2-0 VLOC 9-inch length sutures. The mesh covered any potential hernias including future obturator hernia, femoral hernia, inguinal and indirect direct hernias. Pelvic adhesions involving sigmoid colon to the left pelvis were lysed using vessel sealer including scissors completely freeing the sigmoid colon from prior adhesions and partial obstruction. The robot was undocked from the patient's bedside. I then rescrubbed into the case. The 12 mm trocar site was closed using 0 Vicryl and Arthur Thornton. Insufflation was released from the abdominal cavity and all instruments were removed from the abdominal cavity. The rest of incisions were reapproximated using 4-0 Monocryl in a running subcuticular fashion. Incisions were cleansed using dilute hydrogen peroxide. Liquid glue was applied to the skin. Tobias catheter was removed at the end of the case. At the end of the procedure, the needle, sponge and instrument counts had been verified correct by the biometric technician. The patient had tolerated the procedure well and was taken to the postanesthesia care unit in stable condition. Due to the extensive nature of of bowel involvement, partial obstruction from left inguinal hernia and pelvic floor reconstruction, admission for observation advised including for patient's pre-existing obstructive uropathy. Plan - Discharge Summary Discharge Rx Participant: No New Discharge Prescriptions: No Action Omeprazole 20 mg PO DAILY PRN PRN Reason: gerd Metoprolol Succinate (ER) [Toprol XL] 12.5 mg PO HS Aspirin [Adult Low Dose Aspirin EC] 81 mg PO HS Atorvastatin [Lipitor] 40 mg PO HS #90 tab bisacodyL [Dulcolax] 5 mg PO Q2D PRN PRN Reason: Constipation Tamsulosin HCl [Flomax] 0.4 mg PO HS Magnesium Oxide [Magnesium] 250 mg PO DAILY PRN PRN Reason: CRAMPING Discharge Medication List Omeprazole 20 mg PO DAILY PRN 05/25/21 [History] Tamsulosin HCl [Flomax] 0.4 mg PO HS 05/25/21 [History] Magnesium Oxide [Magnesium] 250 mg PO DAILY PRN 08/09/22 [History] Aspirin [Adult Low Dose Aspirin EC] 81 mg PO HS 04/24/23 [History] Metoprolol Succinate (ER) [Toprol XL] 12.5 mg PO HS 04/24/23 [History] Atorvastatin [Lipitor] 40 mg PO HS #90 tab 04/29/23 [Rx] bisacodyL [Dulcolax] 5 mg PO Q2D PRN 03/25/24 [History]
[2024-03-27] MEDS: ENOXAPARIN 30 MG/0.3 ML SYRINGE SQ SCH (08:32)
[2024-03-27] MEDS: PANTOPRAZOLE 40 MG/10 ML VIAL IV SCH (08:34)
[2024-03-27 09:36] VITALS: RESP 16
[2024-03-27] MEDS: TAMSULOSIN 0.4 MG CAP.ER.24H PO STA (11:19)
[2024-03-27 13:26] VITALS: BP 137/79; PULSE 86; TEMP 98.1
--- NOTE | 2024-03-27 14:34 | P.PN ---
Subjective Progress Note Date: 03/27/24 CHIEF COMPLAINT: Large bowel obstruction due to incarcerated inguinal HISTORY OF PRESENT ILLNESS: The patient is a 79-year-old male status post bilateral inguinal hernia repair with large bowel obstruction on the left including pre-existing obstructive uropathy who states due to complexity of his surgery. Patient did have urinary retention and has pre-existing history obstructive uropathy. He has not seen a urologist in the past. Patient required straight cath overnight. He reports his left groin pain has moderately improved since surgery. He reports of appropriate right side incisional pain. ROS: No reports of nausea and vomiting. No bowel movements. No fevers or chills. No new chest pain. No productive sputum PHYSICAL EXAM: VITAL SIGNS: Reviewed CONSTITUTIONAL: Well developed and in no acute distress. EYES: Conjuctivae without sclera icterus. Extraocular movements grossly intact. HEAD, EARS, NOSE, THROAT: Moist buccal mucosa. Head is atraumatic, normocephalic. Hears conversational speech. No nasal drainage. RESPIRATORY: Non-labored respirations and equal bilateral excursions. CARDIOVASCULAR: Palpable 2+ radial pulses. ABDOMEN: Incision clean dry and intact. No recurrent hernias. MUSCULOSKELETAL: No gross deformity of the lower extremities noted. No clubbing. No cyanosis. SKIN: Good skin turgor. Well perfused. NEUROLOGIC: Cranial nerves II through XII grossly intact. No focal or lateralizing signs. PSYCH: Appropriate affect. Alert and oriented to person, place and time. CLINICAL LABS: Reviewed. CBC and CMP normal. ASSESSMENT: 1. Incarcerated left inguinal hernia with large bowel obstruction 2. Pre-existing obstructive uropathy 3. Hypertensive heart disease PLAN: 1. Patient has now voided after double dose Flomax. Urology consultation made with patient okay to be seen as outpatient 2. Nonnarcotic pain management described 3. Patient stable for discharge Objective - Vital Signs Vital signs: Vital Signs Temp 98.1 F 03/27/24 13:25 Pulse 86 03/27/24 13:25 Resp 16 03/27/24 13:25 BP 137/79 03/27/24 13:25 Pulse Ox 99 03/27/24 13:25 FiO2 Intake & Output 03/26/24 03/27/24 03/27/24 18:59 06:59 18:59 Intake Total 1550 Output Total 20 430 200 Balance 1530 -430 -200 Weight 71.4 kg 71.4 kg Intake: IV 1550 Output: Urine 405 200 Straight 405 Post Void Residual 25 Estimated Blood Loss 20 - Labs CBC & Chem 7: 03/26/24 12:55 03/26/24 12:55
--- NOTE | 2024-03-27 17:48 | P.GSCN ---
History of Present Illness Consult date: 03/27/24 Reason for Consult: Urinary retention History of present illness: This is a 79-year-old male that underwent bilateral inguinal hernia repair with Dr. Caputo yesterday. Patient is having some difficulty voiding, he indicated he is able to void but his postvoid residual was elevated in the 220- 270 range. He does have history of obstructive urinary symptoms which resolved after starting Flomax by his primary care physician. No previous history of urinary retention. Denies any dysuria or gross hematuria. No previous history of recurrent UTIs, or kidney stones. Review of Systems - Constitutional Denies fever, Denies weight loss - EENT Ears, nose, mouth and throat: Denies dysphagia - Cardiovascular Denies chest pain, Denies shortness of breath - Respiratory Denies cough, Denies 7 - Gastrointestinal Reports as per HPI - Integumentary Denies rash, Denies unusual bruising Past Medical History Past Medical History: GERD/Reflux, Osteoarthritis (OA), Prostate Disorder Additional Past Medical History / Comment(s): jocelin inguinal hernias,seasonal allergies, HYPOGLYCEMIA., BPH History of Any Multi-Drug Resistant Organisms: None Reported Past Surgical History: Heart Catheterization With Stent Additional Past Surgical History / Comment(s): GUM & ORAL SURGERY, CIRCUMSICION, COLONOSCOPY. Past Anesthesia/Blood Transfusion Reactions: No Reported Reaction Additional Past Anesthesia/Blood Transfusion Reaction / Comm: no hx blood transfusion Date of Last Stent Placement:: 2022 Past Psychological History: No Psychological Hx Reported Smoking Status: Former smoker Past Alcohol Use History: None Reported Additional Past Alcohol Use History / Comment(s): STARTED SMOKING AT AGE 18 QUIT SMOKING 1998 SMOKED 2PPD - Past Drug Use History: None Reported - Past Family History Mother Family Medical History: No Reported History Father Family Medical History: Cancer Additional Family Medical History / Comment(s): lung, pancreatic cancer Brother(s) Family Medical History: Coronary Artery Disease (CAD) Additional Family Medical History / Comment(s): CABG-in age 70s Medications and Allergies Home Medications Medication Instructions Recorded Confirmed Type Omeprazole 20 mg PO DAILY PRN 05/25/21 03/26/24 History Tamsulosin HCl [Flomax] 0.4 mg PO HS 05/25/21 03/26/24 History Magnesium Oxide [Magnesium] 250 mg PO DAILY PRN 08/09/22 03/26/24 History Aspirin [Adult Low Dose Aspirin EC] 81 mg PO HS 04/24/23 03/26/24 History Metoprolol Succinate (ER) [Toprol 12.5 mg PO HS 04/24/23 03/26/24 History XL] Atorvastatin [Lipitor] 40 mg PO HS #90 tab 04/29/23 03/26/24 Rx bisacodyL [Dulcolax] 5 mg PO Q2D PRN 03/25/24 03/26/24 History Acetaminophen Tab [Tylenol Tab] 1,000 mg PO Q6HR PRN #30 tablet 03/27/24 Rx Ibuprofen [Motrin] 600 mg PO Q8HR PRN #30 tab 03/27/24 Rx Allergies Allergy/AdvReac Type Severity Reaction Status Date / Time No Known Allergies Allergy Verified 03/26/24 12:40 Surgical - Exam Vital Signs Temp Pulse Resp BP Pulse Ox 97.8 F 84 16 150/94 96 03/26/24 12:48 03/26/24 12:48 03/26/24 12:48 03/26/24 12:48 03/26/24 12:48 - General no distress, no pain - Eyes normal ocular movement, no pale - ENT normal nares, normal mucosa - Respiratory normal expansion, normal respiratory effort - Abdomen Abdomen: soft, non tender, no distended - Psychiatric oriented to time, oriented to person, oriented to place Results - Labs 03/26/24 12:55 03/26/24 12:55 Assessment and Plan Assessment: 79-year-old male history of BPH on Flomax, is having incomplete bladder emptying post bilateral inguinal hernia repairs. His fever has been ranging between 220-270. At this time recommend continuing to trend PVR, if less than 300 mL he can be discharged home. Do recommend increasing the Flomax to twice daily in the short-term. If his PVR continues to trend upward then would recommend disc harging home with a Tobias catheter
== END 2024-03-27 16:48 | disposition home or self-care (01) ==
LOC: OR 11:56 → 4SSUR 18:32 → OR 03-27 16:48
PROVIDERS: ATTEND Surgery Plastic and Reconstructive Surgery
DX: K40.00 Bilateral inguinal hernia, with obstruction, without gangrene, not specified as recurrent (principal); K45.8 Other specified abdominal hernia without obstruction or gangrene; D17.5 Benign lipomatous neoplasm of intra-abdominal organs; K66.0 Peritoneal adhesions (postprocedural) (postinfection); I25.10 Atherosclerotic heart disease of native coronary artery without angina pectoris; I11.9 Hypertensive heart disease without heart failure; N40.1 Benign prostatic hyperplasia with lower urinary tract symptoms; N13.8 Other obstructive and reflux uropathy; R33.8 Other retention of urine; J44.9 Chronic obstructive pulmonary disease, unspecified; K21.9 Gastro-esophageal reflux disease without esophagitis; M19.90 Unspecified osteoarthritis, unspecified site; Z79.82 Long term (current) use of aspirin; Z79.899 Other long term (current) drug therapy; Z95.5 Presence of coronary angioplasty implant and graft; Z87.891 Personal history of nicotine dependence
CPT/HCPCS: 49650; S2900; 64999; 80048; 85027; 88302

== ENCOUNTER 2024-07-23 18:38 | Emergency (ER) | payer OTHER ==
[2024-07-23 19:15] VITALS: RESP 18
--- NOTE | 2024-07-23 19:38 | ED ---
SOB HPI - General Source: patient, RN notes reviewed Mode of arrival: ambulatory Limitations: no limitations <Mario Alberto Fletcher - Last Filed: 07/23/24 19:36> - History of Present Illness MD Complaint: shortness of breath, cough, chest pain Onset/Timin -: days(s) <DavidLarry - Last Filed: 08/03/24 07:44> - General Chief Complaint: Shortness of Breath Stated Complaint: RAMOS Dizzy Time Seen by Provider: 07/23/24 18:56 - History of Present Illness Initial Comments: Quick note: This is a 79-year-old male with history of cardiac stent complaining of dyspnea and lightheadedness at 1000 this morning. Patient also endorses right-sided chest pain which occasionally radiates to back. Patient describes chest pain as a "gas pocket", occasionally relieved with baking soda use. Endorses receiving stent from Dr. Craig 2 years ago. (Mario Alberto Fletcher) - Related Data Home Medications Medication Instructions Recorded Confirmed Omeprazole 20 mg PO DAILY PRN 05/25/21 03/26/24 Tamsulosin HCl [Flomax] 0.4 mg PO HS 05/25/21 03/26/24 Magnesium Oxide [Magnesium] 250 mg PO DAILY PRN 08/09/22 03/26/24 Aspirin [Adult Low Dose Aspirin EC] 81 mg PO HS 04/24/23 03/26/24 Metoprolol Succinate (ER) [Toprol 12.5 mg PO HS 04/24/23 03/26/24 XL] bisacodyL [Dulcolax] 5 mg PO Q2D PRN 03/25/24 03/26/24 Previous Rx's Medication Instructions Recorded Atorvastatin [Lipitor] 40 mg PO HS #90 tab 04/29/23 Acetaminophen Tab [Tylenol Tab] 1,000 mg PO Q6HR PRN #30 tablet 03/27/24 Ibuprofen [Motrin] 600 mg PO Q8HR PRN #30 tab 03/27/24 Allergies Allergy/AdvReac Type Severity Reaction Status Date / Time No Known Allergies Allergy Verified 07/23/24 19:15 Review of Systems ROS Other: All systems not noted in ROS Statement are negative. <Mario Alberto Fletcher - Last Filed: 07/23/24 19:36> ROS Other: All systems not noted in ROS Statement are negative. Constitutional: Reports: chills. Denies: fever, weakness Respiratory: Reports: cough, dyspnea. Denies: wheezes, hemoptysis Cardiovascular: Reports: chest pain. Denies: palpitations, orthopnea, edema, syncope Gastrointestinal: Denies: abdominal pain, nausea, vomiting, diarrhea Genitourinary: Denies: dysuria, hematuria Musculoskeletal: Denies: back pain Skin: Denies: rash Neurological: Denies: headache, weakness <SlyirlandaLarry - Last Filed: 08/03/24 07:44> ROS Statement: Those systems with pertinent positive or pertinent negative responses have been documented in the HPI. Past Medical History Past Medical History: GERD/Reflux, Osteoarthritis (OA), Prostate Disorder Additional Past Medical History / Comment(s): jocelin inguinal hernias,seasonal allergies, HYPOGLYCEMIA., BPH History of Any Multi-Drug Resistant Organisms: None Reported Past Surgical History: Heart Catheterization With Stent, Hernia Repair Additional Past Surgical History / Comment(s): GUM & ORAL SURGERY, CIRCUMSICION, COLONOSCOPY. Past Anesthesia/Blood Transfusion Reactions: No Reported Reaction Additional Past Anesthesia/Blood Transfusion Reaction / Comment(s): no hx blood transfusion Date of Last Stent Placement:: 2022 Past Psychological History: No Psychological Hx Reported Smoking Status: Former smoker Past Alcohol Use History: Occasional Past Drug Use History: None Reported - Past Family History Mother Family Medical History: No Reported History Father Family Medical History: Cancer Additional Family Medical History / Comment(s): lung, pancreatic cancer Brother(s) Family Medical History: Coronary Artery Disease (CAD) Additional Family Medical History / Comment(s): CABG-in age 70s <Mario Alberto Fletcher - Last Filed: 07/23/24 19:36> General Exam Limitations: no limitations <Mario Alberto Fletcher - Last Filed: 07/23/24 19:36> General appearance: alert, in no apparent distress Head exam: Present: atraumatic, normocephalic Eye exam: Present: normal appearance. Absent: scleral icterus, conjunctival injection ENT exam: Present: normal oropharynx Neck exam: Present: normal inspection Respiratory exam: Present: normal lung sounds bilaterally. Absent: respiratory distress, wheezes, rales, rhonchi, stridor, chest wall tenderness, accessory muscle use Cardiovascular Exam: Present: regular rate, normal rhythm, normal heart sounds. Absent: systolic murmur, diastolic murmur, rubs, gallop GI/Abdominal exam: Present: soft. Absent: distended, tenderness, guarding, rebound, rigid, mass Extremities exam: Present: normal inspection, normal capillary refill. Absent: pedal edema, calf tenderness Back exam: Present: normal inspection. Absent: CVA tenderness (R), CVA tenderness (L) Neurological exam: Present: alert Skin exam: Present: warm, dry, intact, normal color. Absent: rash <Larry Hernandez - Last Filed: 08/03/24 07:44> - General Exam Comments Initial Comments: Visual Physical Exam Vital signs reviewed General: Well-appearing, nontoxic, no acute distress. Head: Normocephalic, atraumatic Eyes: PERRLA, EOMI ENT: Airway patent Chest: Nonlabored breathing Skin: No visual rash, normal skin tone Neuro: Alert and oriented 3 Musculoskeletal: No gross abnormalities (Mario Alberto Fletcher) Course Vital Signs 07/23/24 07/23/24 07/23/24 19:12 22:36 23:16 Temperature 99.9 F H 99.4 F Pulse Rate 103 H 91 88 Respiratory 18 18 18 Rate Blood Pressure 136/81 116/91 114/73 O2 Sat by Pulse 94 L 95 Oximetry Medical Decision Making <Mario Alberto Fletcher - Last Filed: 07/23/24 19:36> - Lab Data Result diagrams: 07/23/24 20:11 07/23/24 20:11 - EKG Data -: EKG Interpreted by Me EKG shows normal: sinus rhythm, axis (Normal), intervals (NV interval 152 ms, QTc 392 ms, both normal. QRS duration 137 ms, prolonged consistent with right b undle branch block.), QRS complexes (Right bundle branch block pattern), ST-T waves (Normal) Rate: normal (Rate 81 bpm) <Larry Hernandez - Last Filed: 08/03/24 07:44> - Medical Decision Making I completed the quick note portion of this chart signed WILLIAM Argueta (Mario Alberto Fletcher) The patient had chest x-ray that I interpreted as negative for acute infiltrate, pneumothorax, congestive heart failure Was pt. sent in by a medical professional or institution (YONATAN Kumar, [employer], urgent care, hospital, or care home...) When possible be specific @ -[No] Did you speak to anyone other than the patient for history (EMS, parent, family, police, friend...)? What history was obtained from this source @ -[No] Did you review nursing and triage notes (agree or disagree)? Why? @ -[I reviewed and agree with nursing and triage notes] Were old charts reviewed (outside hosp., previous admission, EMS record, old EKG, old radiological studies, urgent care reports/EKG's, care home records)? Report findings @ -[No old charts were reviewed] Differential Diagnosis (chest pain, altered mental status, abdominal pain women, abdominal pain men, vaginal bleeding, weakness, fever, dyspnea, syncope, headache, dizziness, GI bleed, back pain, seizure, CVA, palpatations, mental health, musculoskeletal)? @ -[Differential Dyspnea: Coronary syndrome, arrhythmia, tamponade, asthma, COPD, pulmonary embolism, pneumonia, pneumothorax, pulmonary effusion, anaphylaxis, diabetic ketoacidosis, flailed chest, pulmonary contusion, diaphragmatic rupture, anemia, neuromuscular, this is not meant to be an all-inclusive list. EKG interpreted by me (3pts min.). @ -[As above] X-rays interpreted by me (1pt min.). @ -[I interpreted as above CT interpreted by me (1pt min.). @ -[None done] U/S interpreted by me (1pt. min.). @ -[None done] What testing was considered but not performed or refused? (CT, X-rays, U/S, labs)? Why? @ -[None] What meds were considered but not given or refused? Why? @ -[None] Did you discuss the management of the patient with other professionals (professionals i.e. , PA, [employer], lab, RT, psych nurse, social media analyst, computer networking instructor adjunct, teacher, state wildlife officer, therapeutic case manager)? Give summary @ -[No] Was smoking cessation discussed for >3mins.? @ -[No] Was critical care preformed (if so, how long)? @ -[No] Were there social determinants of health that impacted care today? How? (Homelessness, low income, unemployed, alcoholism, drug addiction, transportation, low edu. Level, literacy, decrease access to med. care, senior living, rehab)? @ -[No] Was there de-escalation of care discussed even if they declined (Discuss DNR or withdrawal of care, Hospice)? DNR status @ -[No] What co-morbidities impacted this encounter? (DM, HTN, Smoking, COPD, CAD, Cancer, CVA, ARF, Chemo, Hep., AIDS, mental health diagnosis, sleep apnea, morbid obesity)? @ -[None] Was patient admitted / discharged? Hospital course, mention meds given and route, prescriptions, significant lab abnormalities, going to OR and other pertinent info. @ -[hospital course] Undiagnosed new problem with uncertain prognosis? @ -[No] Drug Therapy requiring intensive monitoring for toxicity (Heparin, Nitro, Insuli n, Cardizem)? @ -[No] Were any procedures done? @ -[No] Diagnosis/symptom? @ -[Acute influenza A infection Acute, or Chronic, or Acute on Chronic? @ -[Acute Uncomplicated (without systemic symptoms) or Complicated (systemic symptoms)? @ -[Complicated by dyspnea Side effects of treatment? @ -[No] Exacerbation, Progression, or Severe Exacerbation? @ -[No] Poses a threat to life or bodily function? How? (Chest pain, USA, SC, pneumonia, PE, COPD, DKA, ARF, appy, cholecystitis, CVA, Diverticulitis, Homicidal, Suicidal, threat to staff... and all critical care pts) @ -[No] All treatments are based on ideal body weight as in ED triage (Larry Hernandez) - Lab Data Lab Results 07/23/24 07/23/24 07/23/24 Range/Units 20:11 20:11 20:11 WBC 5.9 (3.8-10.6) k/uL RBC 5.13 (4.30-5.90) m/uL Hgb 15.8 (13.0-17.5) gm/dL Hct 49.4 (39.0-53.0) % MCV 96.3 (80.0-100.0) fL MCH 30.8 (25.0-35.0) pg MCHC 32.0 (31.0-37.0) g/dL RDW 13.1 (11.5-15.5) % Plt Count 140 L (150-450) k/uL MPV 8.6 Neutrophils % 88 % Lymphocytes % 3 % Monocytes % 7 % Eosinophils % 1 % Basophils % 0 % Neutrophils # 5.2 (1.3-7.7) k/uL Lymphocytes # 0.2 L (1.0-4.8) k/uL Monocytes # 0.4 (0-1.0) k/uL Eosinophils # 0.1 (0-0.7) k/uL Basophils # 0.0 (0-0.2) k/uL PT 11.4 (10.0-12.5) sec INR 1.0 (<1.2) APTT 27.6 (22.0-30.0) sec D-Dimer 0.26 (<0.60) mg/L FEU Sodium 134 L (137-145) mmol/L Potassium 4.0 (3.5-5.1) mmol/L Chloride 97 L (98-107) mmol/L Carbon Dioxide 26 (22-30) mmol/L Anion Gap 11 mmol/L BUN 12 (9-20) mg/dL Creatinine 0.80 (0.66-1.25) mg/dL Est GFR (CKD-EPI)AfAm >90 (>60 ml/min/1.73 sqM) Est GFR (CKD-EPI)NonAf 87 (>60 ml/min/1.73 sqM) Glucose 86 (74-99) mg/dL Plasma Lactic Acid Joel (0.7-2.0) mmol/L Calcium 9.0 (8.4-10.2) mg/dL Magnesium 2.0 (1.6-2.3) mg/dL Total Bilirubin 1.3 (0.2-1.3) mg/dL AST 27 (17-59) U/L ALT 26 (4-49) U/L Alkaline Phosphatase 56 (38-126) U/L Troponin I (0.000-0.034) ng/mL Total Protein 7.2 (6.3-8.2) g/dL Albumin 4.6 (3.5-5.0) g/dL Influenza Type A (PCR) (Not Detectd) Influenza Type B (PCR) (Not Detectd) RSV (PCR) (Not Detectd) SARS-CoV-2 (PCR) (Not Detectd) 07/23/24 07/23/24 07/23/24 Range/Units 20:11 20:11 22:03 WBC (3.8-10.6) k/uL RBC (4.30-5.90) m/uL Hgb (13.0-17.5) gm/dL Hct (39.0-53.0) % MCV (80.0-100.0) fL MCH (25.0-35.0) pg MCHC (31.0-37.0) g/dL RDW (11.5-15.5) % Plt Count (150-450) k/uL MPV Neutrophils % % Lymphocytes % % Monocytes % % Eosinophils % % Basophils % % Neutrophils # (1.3-7.7) k/uL Lymphocytes # (1.0-4.8) k/uL Monocytes # (0-1.0) k/uL Eosinophils # (0-0.7) k/uL Basophils # (0-0.2) k/uL PT (10.0-12.5) sec INR (<1.2) APTT (22.0-30.0) sec D-Dimer (<0.60) mg/L FEU Sodium (137-145) mmol/L Potassium (3.5-5.1) mmol/L Chloride (98-107) mmol/L Carbon Dioxide (22-30) mmol/L Anion Gap mmol/L BUN (9-20) mg/dL Creatinine (0.66-1.25) mg/dL Est GFR (CKD-EPI)AfAm (>60 ml/min/1.73 sqM) Est GFR (CKD-EPI)NonAf (>60 ml/min/1.73 sqM) Glucose (74-99) mg/dL Plasma Lactic Acid Joel 1.0 (0.7-2.0) mmol/L Calcium (8.4-10.2) mg/dL Magnesium (1.6-2.3) mg/dL Total Bilirubin (0.2-1.3) mg/dL AST (17-59) U/L ALT (4-49) U/L Alkaline Phosphatase (38-126) U/L Troponin I <0.012 (0.000-0.034) ng/mL Total Protein (6.3-8.2) g/dL Albumin (3.5-5.0) g/dL Influenza Type A (PCR) Detected A (Not Detectd) Influenza Type B (PCR) Not Detected (Not Detectd) RSV (PCR) Not Detected (Not Detectd) SARS-CoV-2 (PCR) Not Detected (Not Detectd) Disposition <Mario Alberto Fletcher - Last Filed: 07/23/24 19:36> Is patient prescribed a controlled substance at d/c from ED?: No <Larry Hernandez - Last Filed: 08/03/24 07:44> Clinical Impression: Influenza A Disposition: HOME SELF-CARE Condition: Good Instructions (If sedation given, give patient instructions): Influenza (ED) [facility] - 1-2 days
[2024-07-23 20:27] LABS: Basophils % (A) 0 %; Eosinophils # (A) 0.1 k/uL (0-0.7); Eosinophils % (A) 1 %; HCT 49.4 % (39.0-53.0); HGB 15.8 gm/dL (13.0-17.5); Lymphocytes # (A) 0.2 k/uL (1.0-4.8); Lymphocytes % (A) 3 %; MCH 30.8 pg (25.0-35.0); MCV 96.3 fL (80.0-100.0); Mean Platelet Volume 8.6; Monocytes # (A) 0.4 k/uL (0-1.0); Monocytes % (A) 7 %; Neutrophils # (A) 5.2 k/uL (1.3-7.7); Neutrophils % (A) 88 %; Platelet Count 140 k/uL (150-450); RBC 5.13 m/uL (4.30-5.90); RDW 13.1 % (11.5-15.5); WBC 5.9 k/uL (3.8-10.6)
[2024-07-23 20:41] LABS: ALT 26 U/L (4-49); AST 27 U/L (17-59); African American GFR (CKD) >90 (>60 ml/min/1.73 sqM); Albumin 4.6 g/dL (3.5-5.0); Alkaline Phosphatase 56 U/L (38-126); Anion Gap 11 mmol/L; Blood Urea Nitrogen 12 mg/dL (9-20); Carbon Dioxide 26 mmol/L (22-30); Chloride 97 mmol/L (98-107); Glucose 86 mg/dL (74-99); Non-African American GFR(CKD) 87 (>60 ml/min/1.73 sqM); Sodium 134 mmol/L (137-145); Total Bilirubin 1.3 mg/dL (0.2-1.3); Total Protein 7.2 g/dL (6.3-8.2)
[2024-07-23 20:43] LABS: Partial Thromboplastin Time 27.6 sec (22.0-30.0); Prothrombin Time 11.4 sec (10.0-12.5)
--- NOTE | 2024-07-23 20:47 | XR ---
EXAMINATION TYPE: XR chest 2V DATE OF EXAM: 07/23/2024 8:39 PM COMPARISON: None. CLINICAL INDICATION: Male, 79 years old with history of difficulty breathing, TECHNIQUE: XR chest 2V view(s) obtained. FINDINGS: The heart size is normal. The pulmonary vasculature is normal. The lungs are clear. Small hiatal hernia appears to be present on the frontal projection. IMPRESSION: 1. No acute pulmonary process. [facility], , 07/23/2024 8:45 PM
[2024-07-23] MEDS: ACETAMINOPHEN TAB 500 MG TAB PO STA (22:38)
[2024-07-23 22:45] LABS: Influenza A Detected (Not Detectd); Influenza B Not Detected (Not Detectd); RSV Not Detected (Not Detectd)
[2024-07-23 23:18] VITALS: BP 114/73; PULSE 88; TEMP 99.4
== END 2024-07-23 23:16 | disposition home or self-care (01) ==
LOC: EC 18:38
DX: J10.1 Influenza due to other identified influenza virus with other respiratory manifestations (principal); I45.10 Unspecified right bundle-branch block; Z87.891 Personal history of nicotine dependence
CPT/HCPCS: 36415; 71046; 80053; 83605; 83735; 84484; 85025; 85379; 85610; 85730; 87636; 93005; 99285